=== PATIENT | male | born 1960 | race Native Hawaiian/Other Pacific Islander ===

== ENCOUNTER 2018-06-05 06:23 | Inpatient (IN) ==
[2018-06-05] MEDS ORDERED: Metoprolol Tartrate 25 MG Tablet PO ONE (07:08)
[2018-06-05] MEDS ORDERED: Chlorhexidine Gluconate 2% 1 Pack (2 Cloths) TOPICAL ONE (07:08)
[2018-06-05] MEDS ORDERED: Sodium Chlor 0.9% Inj 500 ML IV.SIG SCH (08:00)
[2018-06-05] MEDS ORDERED: Ketamine Inj 50 MG/5 ML Syringe IV.PUSH ONE (09:32)
[2018-06-05] MEDS ORDERED: Glycopyrrolate Inj 1 MG/5 ML Syringe IV.PUSH ONE (09:45)
[2018-06-05] MEDS ORDERED: Phenylephrine/NS 1000 MCG/10ML Syringe IV.PUSH ONE (09:45)
[2018-06-05] MEDS ORDERED: Lidocaine PF 1% Inj 5 ML Syringe OTHER ONE (09:45)
[2018-06-05] MEDS ORDERED: Neostigmine Inj 5 MG/5 ML Syringe IV.PUSH ONE (09:45)
[2018-06-05] MEDS ORDERED: Bupivacaine/Epinephrine Inj 0.25% 50 ML Vial ONE (09:49)
[2018-06-05] MEDS ORDERED: Vancomycin Inj 1,250 MG in Sodium Chlor 0.9% Inj 250 ML IV.SIG ONE (10:00)
[2018-06-05] MEDS ORDERED: diphenhydrAMINE HCl 12.5 MG/5 ML Elixir UDC PO PRN (12:16)
[2018-06-05] MEDS ORDERED: Acetaminophen-HYDROcodone 325/7.5 Liq 15 ML UDC PO PRN (12:16)
[2018-06-05] MEDS ORDERED: Post-op Orders (for Pharmacy) OTHER STA (12:16)
[2018-06-05] MEDS ORDERED: Naloxone Inj 0.4 MG/ML Vial IV.PUSH PRN ×2 (12:20→15:00)
[2018-06-05] MEDS ORDERED: fentaNYL Citrate Inj 100 MCG/2 ML Ampul ONE (12:38)
[2018-06-05] MEDS ORDERED: *morphine SULFATE 4 MG/ML PERIprocedure ONLY ONE (12:43)
[2018-06-05] MEDS ORDERED: Morphine Inj 30 MG/30 ML PCA.VIAL PCA ONE (13:01)
[2018-06-05] MEDS: KCL 20 mEq/NACL 0.45% Inj 1,000 ML IV.CONT SCH ×2 (13:13→22:43)
[2018-06-05] MEDS ORDERED: Morphine Inj 30 MG/30 ML PCA.VIAL PCA PRN (15:00)
--- NOTE | 2018-06-05 16:27 | P.PNGS ---
Subjective Interval history: Pt denies pain or nausea, c/o mild burping. Denies SOB, Chest Pain, Moderate/ Severe abdominal pain. Physical Exam Vital signs: Vital Signs 06/05/18 07:46 06/05/18 08:02 06/05/18 12:34 Temperature 98.3 F 97.6 F Pulse Rate 64 74 Respiratory Rate 20 18 18 Blood Pressure 111/67 100/59 L Pulse Oximetry 96 98 06/05/18 12:45 06/05/18 13:00 06/05/18 13:15 Temperature Pulse Rate 72 68 66 Respiratory Rate 18 18 18 Blood Pressure 98/58 L 116/55 L 100/55 L Pulse Oximetry 98 98 98 06/05/18 13:30 06/05/18 14:35 Temperature 98 F Pulse Rate 68 70 Respiratory Rate 18 18 Blood Pressure 101/53 L 105/51 L Pulse Oximetry 98 98 Intake & Output 06/04/18 06/05/18 06/05/18 18:59 06:59 18:59 Intake Total 1762.5 / 1762.5 Output Total 20 / 20 Balance 1742.5 / 1742.5 Weight 164.08 kg Intake: IV 1462.5 / 1462.5 Ofirmev Inj 1,000 mg In 100 ml 100 / 100 @ 400 mls/hr IV.SIG [employer] [facility] Rx#:[id number] LR 1000 mL Inj 1,000 ML @ 30 1000 / 1000 mls/hr IV.SIG .Q24H [facility] Rx#: [id number] Vancomycin Inj 1,250 MG In NS 262.5 / 262.5 Inj 250 ML @ 250 mls/hr IV.SIG ONCE ONE Rx#:[id number] Flagyl 500 MG Inj 100 ML @ 100 100 / 100 mls/hr IV.SIG [employer] [facility] Rx#: [id number] Anesthesia Amount 300 / 300 Output: Estimated Blood Loss 20 / 20 Other: # Voids 1 Weight On Admission 164.08 kg - Constitutional no acute distress - Routine HEENT Exam Head: Present: normocephalic Eye: Present: EOMI, PERRL, normal accommodation - Routine Neck Exam Present: supple - Routine Respiratory Exam Present: decreased breath sounds - Routine Cardiovascular Exam Present: RRR, S1, S2 - Routine Abdominal Exam Present: soft, tenderness, distended Comments: Surgical sites with scant dried bloody drainage, no edema or eccymosis. - Routine Neurological Exam Present: oriented X3 - Detailed Neurological Exam: Coma Scale Eye Opening: Spontaneous - Routine Psychiatric Exam Present: normal affect, normal thought process Results - Labs 06/06/18 05:35 06/06/18 05:40 Laboratory Results - last 24 hr 06/05/18 07:50 Blood Type A Positive Blood Type Recheck Required Antibody Screen Negative Assessment and Plan - Plan RNY with repair of umbilical hernia. Tolerating clears, continue tonight. Continue IVF @ 125 Binder when ambulating. Ambulate in hallway Incentive Spirometry Nausea and pain control. Code Status: Full code Discussed Condition With: Patient
[2018-06-05] MEDS: Enoxaparin Inj 40 MG/0.4 ML Syringe SQ SCH (18:26)
[2018-06-05] MEDS: Vancomycin Inj 1,000 MG in Sodium Chlor 0.9% Inj 250 ML IV.SIG SCH (22:43)
[2018-06-06] MEDS: KCL 20 mEq/NACL 0.45% Inj 1,000 ML IV.CONT SCH ×2 (05:16→12:20)
[2018-06-06 06:01] LABS: Calcium 8.2 mg/dL (8.5-10.1); Carbon Dioxide 18.5 meq/L (21.0-32.0); Magnesium 2.3 mg/dL (1.5-2.5)
[2018-06-06 06:09] LABS: Baso # (Auto) 0.1 th/mm3 (0.0-0.2); Baso % (Auto) 0.3 % (0.0-2.0); Eos % (Auto) 0.2 % (0.0-4.0); Hematocrit 40.8 % (39.0-51.0); Hemoglobin 13.1 gm/dL (13.0-17.0); Lymph # (Auto) 1.4 th/mm3 (1.0-4.8); Lymph % (Auto) 8.9 % (9.0-44.0); Mean Corpuscular Hemoglobin 31.4 pg (27.0-34.0); Mean Platelet Volume 9.5 fL (7.0-11.0); Mono % (Auto) 6.3 % (0.0-8.0); Neut # (Auto) 13.7 th/mm3 (1.8-7.7); Neut % (Auto) 84.3 % (16.0-70.0); Platelet Count 235 th/mm3 (150-450); Red Blood Count 4.16 mil/mm3 (4.50-5.90); Red Cell Distribution Width 13.9 % (11.6-17.2); White Blood Count 16.2 th/mm3 (4.0-11.0)
[2018-06-06] MEDS: Vancomycin Inj 1,000 MG in Sodium Chlor 0.9% Inj 250 ML IV.SIG SCH (09:06)
--- NOTE | 2018-06-06 10:11 | P.PNGS ---
Subjective Patient reports: feels better, tolerating liquids well, voiding w/o difficulty, no flatus Interval history: Experienced desat 88% overnight currently on 2L, hx of sleep apnea. Has been using IS, not ambulating in hallway. Tolerating PO, pain well controlled, denies nausea, denies, SOB, chest pain, or moderate/severe abdominal pain. Physical Exam Vital signs: Vital Signs 06/05/18 12:34 06/05/18 12:45 06/05/18 13:00 Temperature 97.6 F Pulse Rate 74 72 68 Respiratory Rate 18 18 18 Blood Pressure 100/59 L 98/58 L 116/55 L Pulse Oximetry 98 98 98 06/05/18 13:15 06/05/18 13:30 06/05/18 14:35 Temperature 98 F Pulse Rate 66 68 70 Respiratory Rate 18 18 18 Blood Pressure 100/55 L 101/53 L 105/51 L Pulse Oximetry 98 98 98 06/05/18 15:17 06/05/18 20:00 06/05/18 23:17 Temperature 97.5 F L 97.4 F L 97.7 F Pulse Rate 79 76 88 Respiratory Rate 20 17 21 Blood Pressure 101/58 L 116/59 L 102/53 L Pulse Oximetry 92 L 95 91 L 06/06/18 03:17 06/06/18 07:50 06/06/18 09:11 Temperature 98.3 F 97.8 F Pulse Rate 65 85 Respiratory Rate 20 18 Blood Pressure 111/61 118/60 Pulse Oximetry 92 L 90 L 92 L Intake & Output 06/05/18 06/06/18 06/06/18 18:59 06:59 18:59 Intake Total 1762.5 / 1762.5 2450 / 2450 Output Total 20 / 20 Balance 1742.5 / 1742.5 2450 / 2450 Weight 164.08 kg 144.4 kg Intake: IV 1462.5 / 1462.5 2450 / 2450 Potassium Chlor 20 mEq/NACL 0. 2000 / 1999 45% Inj 1,000 ML @ 125 mls/hr IV.CONT .Q8H [facility] Rx#:[id number] Ofirmev Inj 1,000 mg In 100 ml 100 / 100 @ 400 mls/hr IV.SIG [employer] [facility] Rx#:[id number] LR 1000 mL Inj 1,000 ML @ 30 1000 / 1000 mls/hr IV.SIG .Q24H [facility] Rx#: [id number] Vancomycin Inj 1,000 MG In NS 250 / 250 Inj 250 ML @ 250 mls/hr IV.SIG Q12H [facility] Rx#:[id number] Vancomycin Inj 1,250 MG In NS 262.5 / 262.5 Inj 250 ML @ 250 mls/hr IV.SIG ONCE ONE Rx#:[id number] Flagyl 500 MG Inj 100 ML @ 200 100 / 100 200 / 200 mls/hr IV.SIG Q8H [facility] Rx#: [id number] Anesthesia Amount 300 / 300 Output: Estimated Blood Loss Other: # Voids 1 2 2 Date of Last Bowel Movement 06/04/18 Weight On Admission 164.08 kg - Constitutional no acute distress, morbidly obese - Routine HEENT Exam Head: Present: normocephalic Eye: Present: EOMI, PERRL - Routine Neck Exam Present: supple - Routine Respiratory Exam Present: CTA bilaterally - Routine Cardiovascular Exam Present: RRR, S1, S2 - Routine Abdominal Exam Present: soft, tenderness, distended Comments: Sites intact, no hematoma or edema, erythema - Routine Neurological Exam Present: alert, oriented X3 - Detailed Neurological Exam: Coma Scale Eye Opening: Spontaneous Verbal Response: Oriented - Routine Psychiatric Exam Present: normal affect Results - Labs 06/06/18 05:35 06/06/18 05:40 Laboratory Results - last 24 hr 06/06/18 06/06/18 05:35 05:40 WBC 16.2 H RBC 4.16 L Hgb 13.1 Hct 40.8 MCV 98.0 MCH 31.4 MCHC 32.0 RDW 13.9 Plt Count 235 MPV 9.5 Neut % (Auto) 84.3 H Lymph % (Auto) 8.[address] [place] % (Auto) 6.3 Eos % (Auto) 0.2 Baso % (Auto) 0.3 Neut # (Auto) 13.7 H Lymph # (Auto) 1.4 [facility] # (Auto) 1.0 H Eos # (Auto) 0.0 Baso # (Auto) 0.1 WBC Differential . Differential Comment Auto diff final Sodium 136 Potassium 5.0 Chloride 107 Carbon Dioxide 18.5 L Anion Gap 11 BUN 22 H Creatinine 0.94 Estimated GFR 82 L Random Glucose 149 H Calcium 8.2 L Magnesium 2.3 Assessment and Plan - Plan POD #1 RNY with repair of umbilical hernia. Tolerating clears, 60ml q 30 minutes. 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 Ambulate in hallway Incentive Spirometry Nausea and pain control. Obtain CXR mildly elevated WBC's with overnight desat to 88% on CPAP Restart home Metoprolol. Start Low dose SSI Novolog Code Status: Full Code Discussed Condition With: Patient and family
--- NOTE | 2018-06-06 11:43 | XR ---
EXAM DATE: 06/06/2018 11:03 AM EDT AGE/SEX: 58 years / Male INDICATIONS: Short of breath. CLINICAL DATA: This is the patient's initial encounter. Patient reports that signs and symptoms have been present for 2 days and indicates a pain score of 0/10. MEDICAL/SURGICAL HISTORY: None. . Post Gastric bypass surgery yesterday. COMPARISON: No prior exams available for comparison. FINDINGS: Bibasilar streakiness is noted consistent with discoid atelectasis and/or fibrotic scarring. The hear t is top normal in size. The pulmonary vascular pattern is normal. CONCLUSION: 1. Bibasilar streakiness is noted consistent with discoid atelectasis and/or fibrotic scarring. Electronically signed by: Christian Rust MD 06/06/2018 11:41 AM EDT
[2018-06-06] MEDS ORDERED: Dextrose 50% in Water 50 ML Vial IV.PUSH PRN (14:08)
[2018-06-06] MEDS: Insulin NovoLOG Aspart Correctional Sugar Inj SQ SCH ×2 (14:24→18:07)
[2018-06-06] MEDS ORDERED: Metoprolol Tartrate 25 MG Tablet PO SCH (14:30)
[2018-06-06 17:32] VITALS: BP 121/60; PULSE 83; RESP 20; TEMP 97.8; O2SAT 94
[2018-06-06] MEDS: Enoxaparin Inj 40 MG/0.4 ML Syringe SQ SCH (18:07)
--- NOTE | 2018-06-15 13:40 | MP ---
cc: Vega Garcia MD DATE OF OPERATION: 06/05/2018 PREOPERATIVE DIAGNOSES: Super obesity with a BMI of 52, complicated by essential hypertension, type 2 diabetes. POSTOPERATIVE DIAGNOSES: 1. Super obesity with a body mass index of 52, complicated by essential hypertension, type 2 diabetes. 2. Umbilical hernia. PROCEDURE: 1. Laparoscopic Lindsey-en-Y gastric bypass, 100 cm Lindsey limb, antigastric, anticolic. 2. Laparoscopic umbilical hernia repair. PRIMARY SURGEON: Vega Garcia MD OUTSOLE HANDLER: Myles Mejia MD. Dr. Mejia's assistance was necessary for the operation due to the complexity of the operation. Dr. Mejia assisted with manipulation and exposure during the procedure. The document control assistant provided by [employer] was utilized with managing the camera. ANESTHESIA: General endotracheal anesthesia. ] ESTIMATED BLOOD LOSS: Scant. FINDINGS: Fatty liver, umbilical defect. SPECIMENS: None. COMPLICATIONS: None. OPERATION: The patient was brought to the operating room and placed on the operating table in supine position, bilateral sequential inflation device placed on lower extremities, general anesthesia instituted, antibiotics initiated. The abdomen was prepped and draped sterilely. A point 18-cm distal to the xiphoid in the midline anesthetized with 0.25% Marcaine with epinephrine. The skin incision was made, a 5-mm OptiView port placed under direct vision and pneumoperitoneum was created. Under direct vision a 5-mm left upper quadrant, 12-mm left upper quadrant, 12-mm right upper quadrant and 5-mm right upper quadrant ports were placed. Prior to placement of all ports, the skin and peritoneum were anesthetized with 0.25% Marcaine with epinephrine. The patient's omentum was lifted into the upper abdomen. It was split down the middle to create a path for the Lindsey limb. The ligament of Treitz was identified, a point 40 cm distal identified. The small bowel was divided in this region using an Fenwood Flex stapler vascular load reinforced with SeamGuard. The distal segment was brought up for a distance of 100 cm, enterotomy created in this region, enterotomy in the biliopancreatic limb and a [id number] stapled jejunojejunostomy created in the usual manner. The mesenteric defect at the jejunojejunostomy was closed with 2-0 Surgidac suture in a running manner. The patient was placed in reverse Trendelenburg position with the left side up. The Citlali-Flex retractor was placed. The left lobe of the liver was retracted. The angle of His was taken down bluntly, a point 5 cm distal to the GE junction along the lesser curve identified, the lesser sac entered using blunt dissection. The stomach was partitioned horizontally using an Fenwood-Flex stapler blue load, an additional firing taken directed towards the angle of His to completely divide the stomach. A gastrotomy created in the new stomach, enterotomy in the Lindsey limb and gastrojejunostomy created, stomal opening of 2 cm. An 18-Romansh orogastric tube was placed across the anastomosis, the defect then closed in two layers of running 2-0 Vicryl. Prior to placement of the second layer, methylene blue instilled through the orogastric tube. There was no evidence of extravasation. Evicel was then placed over the gastrojejunostomy, jejunojejunostomy and all staple lines. The operative field inspected and hemostasis was present. Attention was focused in the umbilical region. A stab incision was made using 2 Vicryl suture, the fascial defect was approximated in [id number] manner. The fascia came together without tension. The CO2 was released, all ports were removed. All skin incisions were closed with 4-0 Monocryl. The abdominal wall was cleaned and a sterile dressing placed. The patient was awakened and taken to the recovery room. MD TERESA Davidson/sonja/tiago , 12:55 PM , 01:02 PM
== END 2018-06-06 18:42 | disposition home or self-care (01) ==
LOC: HSDI 06:23 → N07 14:42
PROVIDERS: ADMIT Surgery; ATTEND Surgery